=== PATIENT | male | born 1975 | race Two or more races ===

== ENCOUNTER 2024-08-20 17:32 | Emergency (ER) | payer BC, OTHER | END 2024-08-20 18:14 | disposition left against medical advice (07) | LOC: ER 17:32 | DX: Z04.1 Encounter for examination and observation following transport accident (principal); Z53.21 Procedure and treatment not carried out due to patient leaving prior to being seen by health care provider ==

== ENCOUNTER 2024-08-23 06:09 | Emergency (ER) | payer BC, OTHER ==
[~2024-08-23] VITALS: Ht 188 cm; Wt 86.9 kg
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
[2024-08-23] MEDS: IBUPROFEN 800 MG TAB PO ONE (07:50)
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
[2024-08-23 09:47] VITALS: BP 119/79; PULSE 62; RESP 20; TEMP 98.6; O2SAT 100
[2024-08-23] MEDS ORDERED: IBU600T PO (10:40)
== END 2024-08-23 10:43 | disposition home or self-care (01) ==
LOC: ER 06:09
DX: M79.18 Myalgia, other site (principal); R07.89 Other chest pain; M79.601 Pain in right arm; M54.9 Dorsalgia, unspecified; M25.511 Pain in right shoulder; F17.210 Nicotine dependence, cigarettes, uncomplicated
CPT/HCPCS: 71101; 73060